=== PATIENT | female | born 1980 | race Caucasian/White ===

== ENCOUNTER 2018-11-22 04:30 | Inpatient (IN) | payer MEDICAID, OTHER ==
[~2018-11-22] VITALS: Ht 152.4 cm; Wt 59.0 kg
[~2018-11-22 04:30] MED LIST: ACET-8386 PO; CIPR250T3 PO
[2018-11-22 04:37] VITALS: BP 116/67
--- NOTE | 2018-11-22 04:45 | NUR ---
LELIA FREEDMAN AT BEDSIDE.
--- NOTE | 2018-11-22 04:47 | NUR ---
37 Y/O FEMALE C/O EPIGASTRIC PAIN WITH N/V RADIATING TO BACK X 1 DAY. PAIN IS A 10/10 BURNING PAIN. A/OX 4. SKIN IS MOIST AND INTACT. RADIAL PULSES ARE +2. SHE STATES THAT SHE HAS PAIN IN HER CHEST/EPIGASTRIC AREA AND NAUSEA, VOMITING, AND DIARRHEA. BOWEL SOUNDS NORMOACTIVE ON ALL FOUR QUADRANTS. ER MD AWARE OF STATUS. PLACED ON MONITOR. VSS. SIDERAILS X1. PMH:DENIES POST X 2 DAYS NKDA RX:DENIES
[2018-11-22] MEDS ORDERED: NACL 0.9% 1,000 ML IV SCH (04:48)
[2018-11-22] MEDS ORDERED: MORPHINE SULFATE 4 MG/ML SYR IVP ONE (04:50)
[2018-11-22] MEDS ORDERED: ONDANSETRON 4 MG/2 ML VIAL IVP ONE (04:50)
[2018-11-22] MEDS ORDERED: ALUMINUM HYD/MAG/SIMETHICONE 30 ML, DICYCLOMINE HCL LIQUID 20 MG, LIDOCAINE VISCOUS 2% ... PO ONE ×3 (04:50)
[2018-11-22 05:38] LABS: BASOPHILS % (AUTO) 0.3 % (0.0-2.0); EOSINOPHILS # (AUTO) 0.3 K/uL (0-0.4); EOSINOPHILS % (AUTO) 2.3 % (0.0-4.0); HEMATOCRIT 38.4 % (36-48); HEMOGLOBIN 12.5 g/dL (12.0-16.0); LYMPHOCYTES # (AUTO) 1.3 K/uL (2.5-16.5); MEAN CORPUSCULAR HEMOGLOBIN 29 pg (27-31); MEAN CORPUSCULAR HGB CONC 33 g/dL (33-37); MEAN CORPUSCULAR VOLUME 90.2 fL (80-94); MONOCYTES # (AUTO) 0.8 K/uL (0.8-1.0); MONOCYTES % (AUTO) 5.2 % (1.7-9.3); NEUTROPHILS # (AUTO) 12.5 K/uL (1.8-7.7); NEUTROPHILS % (AUTO) 83.2 % (42.2-75.2); PLATELET COUNT (AUTO) 269 K/uL (140-450); RED BLOOD CELL COUNT(AUTO) 4.25 MIL/uL (4.20-5.40); RED CELL DISTRIBUTION WIDTH 13.9 % (11.6-13.7)
--- NOTE | 2018-11-22 05:44 | NUR ---
ULTRASOUND AT BEDSIDE.
[2018-11-22] MEDS ORDERED: MORPHINE SULFATE 10 MG/ML VIAL IVP ONE (05:55)
--- NOTE | 2018-11-22 05:55 | NUR ---
LELIA FREEDMAN AT BEDSIDE.
[2018-11-22 06:05] LABS: ANION GAP 13.8 (8-16); CARBON DIOXIDE 25.8 mmol/L (21-32); CREATININE 1.4 mg/dL (0.6-1.3); POTASSIUM 3.6 mmol/L (3.5-5.1)
--- NOTE | 2018-11-22 06:05 | NUR ---
10 MG OF MORPHINE PULLED, 6MG OF MORPHINE GIVEN IVP; WASTED 4MG.
[2018-11-22 06:06] LABS: ALBUMIN 3.3 g/dL (3.4-5.0)
--- NOTE | 2018-11-22 06:07 | NUR ---
PATIENT AT A 10/10 PAIN. NOTIFIED
[2018-11-22] MEDS ORDERED: NACL 0.9% 1,000 ML IV ONE (06:15)
--- NOTE | 2018-11-22 07:10 | NUR ---
Pt report given to RAJAN HOFFMAN. Transfer of care at this time.
[2018-11-22] MEDS ORDERED: MORPHINE SULFATE 2 MG/ML SYR IVP PRN ×3 (07:35→13:10)
[2018-11-22] MEDS ORDERED: MORPHINE SULFATE 4 MG/ML SYR IVP PRN ×2 (07:35→20:50)
[2018-11-22 08:15] VITALS: BP 100/54
--- NOTE | 2018-11-22 08:15 | NUR ---
RECEIVED PT FROM ER NURSE, VIA WHEELCHAIR, PT IS AWAKE ACCOMPANIED BY , AMBULATED TO THE BED, IV LINE ON THE LEFT AC G. 20 ON SALINE LOCK, SIDE RAILS ARE UP AND CALL LIGHT WITHIN REACH, PT DENIES PAIN AND NO SIGN OF DISTRESS NOTED, SKIN IS INTACT. WILL MONITOR PT
--- NOTE | 2018-11-22 08:15 | NUR ---
PATIENT ADMITTED TO [facility]. TRANSFERRED PATIENT VIA WHEELCHAIR, SPOUSE AT BEDSIDE. SBAR REPORT GIVEN TO RAJAN SUE AT BEDSIDE. NO ACUTE DISTRESS NOTED.
--- NOTE | 2018-11-22 08:20 | NUR ---
MRSA SWAB DONE TO PT AND SAMPLE WAS SENT TO LAB.
[2018-11-22 08:32] LABS: APPEARANCE,URINE HAZY (CLEAR); BILIRUBIN,URINE NEGATIVE (NEGATIVE); BLOOD, URINE NEGATIVE (NEGATIVE); COLOR,URINE YELLOW (YELLOW); LEUKOCYTE ESTERASE ,URINE NEGATIVE (NEGATIVE); NITRITE, URINE NEGATIVE (NEGATIVE); UGLUCOSE NEGATIVE (NEGATIVE)
[2018-11-22] MEDS: LEVOFLOXACIN 500 MG/D5W PREMIX 100 ML IV SCH (09:27)
[2018-11-22] MEDS: NACL 0.9% 1,000 ML IV SCH ×3 (09:27→22:12)
--- NOTE | 2018-11-22 09:27 | NUR ---
PT IS AWAKE AND WAS STARTED ON IVF OF NS AT 100ML/HR, MEDICATION WAS GIVEN VIA IVPB, WILL MONITOR PT.
--- NOTE | 2018-11-22 11:10 | NUR ---
PT C/O PAIN RATE OF 9/10 ON THE ABDOMEN AND PAIN MEDICATION WAS GVIEN VIA IV PUSH, PARAMETER CHECKED. WILL RE-ASSESS PAIN AND MONITOR PT.
[2018-11-22] MEDS: ONDANSETRON 4 MG/2 ML VIAL IVP PRN (11:21)
--- NOTE | 2018-11-22 11:21 | NUR ---
PT C/O FEELING OF NAUSEA AND ZOFRAN WAS GIVEN VIA IV PUSH. WILL MONITOR PT.
[2018-11-22 16:00] VITALS: BP 118/69
[2018-11-22] MEDS: MORPHINE SULFATE 4 MG/ML SYR IVP PRN ×2 (17:26→21:26)
--- NOTE | 2018-11-22 17:26 | NUR ---
PT C/O PAIN RATE OF 8/10 AND PAIN MEDICATION WAS GIVEN VIA IV PUSH. WILL MONITOR AND RE-ASSESS PAIN.
--- NOTE | 2018-11-22 19:10 | NUR ---
ENDORSED PT TO BOAT CREW DECK HAND NURSE AGUSTIN FOR CONTINUITY OF CARE.
--- NOTE | 2018-11-22 19:10 | NUR ---
RECIEVED PT AAOX4 ,NID ,IV SITE INTACT AND PATENT , C/O ABDL. PAIN INSPITE OF THE AM NURSE GIVEN MORPHINE SO4 TIV AT AROUND 5PM - WILL CONT. TO MONITOR. KEEP ON NPO RE INSTRUCTED TO PT. PLAN OF CARE DISCUSSED AND VERBALIZE UNDERSTANDING . ON SAFETY / FALL PRECAUTION PROTOCOL - CALL LIGHT WITHIN REACH .
[2018-11-22 20:00] VITALS: BP 122/70
--- NOTE | 2018-11-22 20:30 | NUR ---
PT REQUESTED TO HAVE MORPINE NOW - CANT WAIT UNTIL THE RIGHT TIME INTERVALS OF MORPHINE SO4 PRN -WILL REFER TO PROVIDER RELATIONS MANAGER MD.
--- NOTE | 2018-11-22 20:43 | NUR ---
DR LAI YANES -T.O MAY GIVE THE MORPHINE SO4 Q 3 TO 4 HOURS FOR PAIN -4MG TIV-T.O
--- NOTE | 2018-11-22 21:00 | NUR ---
PHARMACIST CALL SHE SAID IT'S COMPLICATE TO CARRIED THE MORPHINE SO4 ORDERED BY DR. HOYT AND DR MIRANDA AND WE SETTLED TO CARRIED OUT THE AP ORDERED SINCE THE PT CAN WAIT NOW THE DUE TIME FOR HER MORPHINE SO4 PRN BASIS FOR PAIN.
[2018-11-23] VITALS: BP 100/60
[2018-11-23] MEDS: MORPHINE SULFATE 4 MG/ML SYR IVP PRN ×4 (02:27→20:08)
--- NOTE | 2018-11-23 07:20 | NUR ---
RECEIVED REPORT FROM INSPECTOR CONVEYOR LINE NURSE AGUSTIN FOR CONTINUITY OF CARE. PT IN STABLE CONDITION. RESPIRATIONS EVEN AND UNLABORED, ROOM AIR. IV INTACT AND PATENT. SAFETY MEASURES IN PLACE. BED IN LOW POSITION. CALL LIGHT AT BEDSIDE. WILL CONTINUE TO MONITOR.
[2018-11-23 08:00] VITALS: BP 118/66
--- NOTE | 2018-11-23 08:10 | NUR ---
GAVE PRN PAIN MEDICATION PER PT REQUEST. BED IN LOW POSITION. CALL LIGHT AT BEDSIDE. PT IN STABLE CONDITION.
[2018-11-23 08:26] LABS: HEMATOCRIT 43.7 % (36-48); HEMOGLOBIN 14.1 g/dL (12.0-16.0); MEAN CORPUSCULAR HEMOGLOBIN 30 pg (27-31); MEAN CORPUSCULAR HGB CONC 32 g/dL (33-37); MEAN CORPUSCULAR VOLUME 91.3 fL (80-94); PLATELET COUNT (AUTO) 201 K/uL (140-450); RED BLOOD CELL COUNT(AUTO) 4.79 MIL/uL (4.20-5.40); RED CELL DISTRIBUTION WIDTH 14.2 % (11.6-13.7); WHITE BLOOD COUNT (AUTO) 10.7 K/uL (4.8-10.8)
--- NOTE | 2018-11-23 08:30 | NUR ---
PATIENT HAS BEEN SCREENED AND CATEGORIZED MODERATE NUTRITION RISK. PATIENT WILL BE SEEN WITHIN 3-5 DAYS OF ADMISSION. 11/24/18ROE [address]
[2018-11-23 09:22] LABS: ALBUMIN 2.2 g/dL (3.4-5.0); ANION GAP 17.1 (8-16); CARBON DIOXIDE 20.2 mmol/L (21-32); CREATININE 1.6 mg/dL (0.6-1.3); MAGNESIUM 1.9 mg/dL (1.8-2.4); POTASSIUM 4.3 mmol/L (3.5-5.1)
[2018-11-23 09:37] LABS: LYMPHOCYTES % (MANUAL) 5 % (20-46); MONOCYTES % (MANUAL) 3 % (5-12)
[2018-11-23] MEDS ORDERED: MORPHINE SULFATE 2 MG/ML SYR IVP PRN (11:05)
[2018-11-23] MEDS ORDERED: MAGNESIUM HYDROXIDE 2400 MG/30 ML UDC PO SCH (11:08)
[2018-11-23] MEDS: NACL 0.9% 1,000 ML IV SCH ×2 (11:33→23:44)
--- NOTE | 2018-11-23 11:54 | NUR ---
STAND BY ASSIST PT TO RESTROOM. PT TOLERATED WELL.
--- NOTE | 2018-11-23 13:01 | NUR ---
LUÍS MITCHELL DR. MORPHINE 10MG IVP Q4, MORPHINE 4MG IVP NOW.
[2018-11-23] MEDS ORDERED: MORPHINE SULFATE 4 MG/ML SYR IVP SCH (13:15)
--- NOTE | 2018-11-23 15:15 | NUR ---
PT TALKING WITH FAMILY AT BEDSIDE. RESPIRATIONS EVEN AND UNLABORED. BED IN LOW POSITION. CALL LIGHT AT BEDSIDE. PT IN STABLE CONDITION.
[2018-11-23 16:00] VITALS: BP 122/64
[2018-11-23] MEDS: MORPHINE SULFATE 10 MG/ML VIAL IVP PRN ×2 (17:40→23:44)
--- NOTE | 2018-11-23 17:46 | NUR ---
PT LYING IN BED SLEEP AT THIS TIME WITH FAMILY AT BEDSIDE. RESPIRATIONS EVEN AND UNLABORED. BED IN LOW POSITION. CALL LIGHT AT BEDSIDE. PT IN STABLE CONDITION.
--- NOTE | 2018-11-23 19:15 | NUR ---
GAVE REPORT TO US CUSTOMS AND BORDER OFFICER NURSE MARGARITA FOR CONTINUITY OF CARE. PT IN STABLE CONDITION.
--- NOTE | 2018-11-23 19:30 | NUR ---
RECEIVED BEDSIDE REPORT FROM DAY RN. PT IS AAOX4 ON ROOM AIR. RESPIRATIONS ARE EQUAL AND UNLABORED. FAMILY IS AT BEDSIDE. PT IS AMBULATORY. SKIN IS INTACT. IV ON LAC 20G NS AT 100M/H. PT NPO EXCEPT MEDS. NO PMH. POC DISCUSSED WITH PT. DENIES PAIN. WILL CONTINUE TO ROUND FREQUENTLY.
--- NOTE | 2018-11-23 20:08 | NUR ---
ADMINISTERED MORPHINE FOR ABDOMINAL PAIN 08/23. PT TOLERATED WELL. WILL CONTINUE TO MONITOR.
[2018-11-23] MEDS: ALBUTEROL 0.083% 2.5 MG/3 ML NEBU INH PRN (20:44)
--- NOTE | 2018-11-23 21:30 | NUR ---
PT IS RESTING COMFORTABLY IN BED. NO S/S OF DISTRESS. CALL LIGHT IS WITHIN REACH. WILL CONTINUE TO MONITOR.
[2018-11-23 22:29] VITALS: BP 106/52
--- NOTE | 2018-11-23 23:44 | NUR ---
VITAL SIGNS ARE WITHIN NORMAL LIMITS. NO S/S OF DISTRESS. ADMINISTERED MORPHINE FOR PAIN 11/23. CALL LIGHT IS WITHIN REACH. WILL CONTINUE TO MONITOR.
[2018-11-24] MEDS: ALBUTEROL 0.083% 2.5 MG/3 ML NEBU INH PRN ×3 (00:06→17:22)
--- NOTE | 2018-11-24 00:10 | NUR ---
RT IS AT BEDSIDE GIVING PT A BREATHING TREATMENT. ALL NEEDS MET AT THIS TIME. WILL CONTINUE TO MONITOR.
--- NOTE | 2018-11-24 01:19 | NUR ---
PATIENT IS SLEEPING COMFORTABLY IN BED. CHEST RISE AND FALL. NO S/S OF DISTRESS. ALL NEEDS MET AT THIS TIME. WILL CONTINUE TO MONITOR.
--- NOTE | 2018-11-24 03:37 | NUR ---
PATIENT IS SLEEPING COMFORTABLY IN BED. CHEST RISE AND FALL. CALL LIGHT IS WITHIN REACH.
[2018-11-24] MEDS: MORPHINE SULFATE 10 MG/ML VIAL IVP PRN ×3 (05:17→19:41)
--- NOTE | 2018-11-24 05:17 | NUR ---
ADMINISTERED 10MG MORPHINE IVP PRN ORDERED FOR ABDOMINAL PAIN 11/23. VS:123/60 128 SAT 100% ON 2L.
--- NOTE | 2018-11-24 07:28 | NUR ---
GAVE BEDSIDE REPORT TO DAY RN. PT ENDORSED IN STABLE CONDITION.
--- NOTE | 2018-11-24 07:29 | NUR ---
RECEIVED REPORT FROM GREEN END WORKER NURSE MARGARITA FOR CONTINUITY OF CARE. PT IN STABLE CONDITION. RESPIRATIONS EVEN AND UNLABORED, ROOM AIR. IV INTACT AND PATENT. SAFETY MEASURES IN PLACE. BED IN LOW POSITION. CALL LIGHT AT BEDSIDE. WILL CONTINUE TO MONITOR.
--- NOTE | 2018-11-24 07:36 | NUR ---
Called to beside due to pt wheezing, pt received PRN albu tx, improved aeration noted, will talk to RN and MD.
[2018-11-24 08:00] VITALS: BP 102/60
[2018-11-24 08:04] LABS: MEAN CORPUSCULAR HEMOGLOBIN 30 pg (27-31); MEAN CORPUSCULAR HGB CONC 32 g/dL (33-37); MEAN CORPUSCULAR VOLUME 91.3 fL (80-94); PLATELET COUNT (AUTO) 174 K/uL (140-450); RED BLOOD CELL COUNT(AUTO) 4.05 MIL/uL (4.20-5.40); RED CELL DISTRIBUTION WIDTH 14.4 % (11.6-13.7); WHITE BLOOD COUNT (AUTO) 13.3 K/uL (4.8-10.8)
[2018-11-24] MEDS: MAGNESIUM HYDROXIDE 2400 MG/30 ML UDC PO SCH (09:44)
[2018-11-24 09:51] LABS: LYMPHOCYTES % (MANUAL) 6 % (20-46); MONOCYTES % (MANUAL) 5 % (5-12)
[2018-11-24 09:52] LABS: METAMYELOCYTES % 2 % (0-0); MYELOCYTES % 1 % (0-0)
[2018-11-24] MEDS: NACL 0.9% 1,000 ML IV SCH (09:52)
[2018-11-24] MEDS: LEVOFLOXACIN 500 MG/D5W PREMIX 100 ML IV SCH (09:56)
--- NOTE | 2018-11-24 10:12 | NUR ---
ASSISTED WITH BEDSIDE COMMODE. GAVE SANITARY [place] AND UNDERWEAR FOR START OF PERIOD. PT TOLERATED WELL. RESPIRATIONS EVEN AND UNLABORED. BED IN LOW POSITION. CALL LIGHT AT BEDSIDE. WILL CONTINUE TO MONITOR.
--- NOTE | 2018-11-24 10:12 | NUR ---
Spoke with Dr. Bruno about pt wheezing and current tx plan. would like to continue current tx plan alb Q6 PRN.
[2018-11-24] MEDS ORDERED: FUROSEMIDE 40 MG/4 ML VIAL IVP SCH (10:25)
[2018-11-24 10:52] LABS: ANION GAP 16.6 (8-16); POTASSIUM 4.6 mmol/L (3.5-5.1)
[2018-11-24 10:53] LABS: TOTAL BILIRUBIN 0.4 mg/dL (0.0-1.0)
[2018-11-24 10:55] LABS: ALBUMIN 1.9 g/dL (3.4-5.0)
[2018-11-24] MEDS: ONDANSETRON 4 MG/2 ML VIAL IVP PRN ×2 (12:12→23:00)
--- NOTE | 2018-11-24 12:18 | NUR ---
GAVE NAUSEA MEDICATION PER PT REQUEST. PT TOLERATED WELL. RESPIRATIONS EVEN AND UNLABORED. BED IN LOW POSITION. CALL LIGHT AT BEDSIDE. WILL CONTINUE TO MONITOR.
--- NOTE | 2018-11-24 15:15 | NUR ---
PT LYING IN BED SLEEP AT THIS TIME. RESPIRATIONS EVEN AND UNLABORED. WILL CONTINUE TO MONITOR.
[2018-11-24 16:00] VITALS: BP 133/51
--- NOTE | 2018-11-24 17:30 | NUR ---
PT TALKING WITH FAMILY AT BEDSIDE. WILL CONTINUE TO MONITOR.
--- NOTE | 2018-11-24 19:20 | NUR ---
GAVE REPORT TO PREPARATION PLANT REPAIRER NURSE FOR CONTINUITY OF CARE. PT IN STABLE CONDITION.
--- NOTE | 2018-11-24 19:25 | NUR ---
RECEIVED BEDSIDE REPORT FROM DAY RN. PT IS AAOX4 ON ROOM AIR. RESPIRATIONS ARE EQUAL AND UNLABORED. FAMILY IS AT BEDSIDE. PT IS AMBULATORY. SKIN IS INTACT. IV ON LAC 20G IVF PER ORDERS. PT NPO EXCEPT MEDS. NO PMH. POC DISCUSSED WITH PT. DENIES PAIN. WILL CONTINUE TO ROUND FREQUENTLY.
--- NOTE | 2018-11-24 19:41 | NUR ---
ADMINISTERED MORPHINE IVP PRN FOR PAIN. VSS. CALL LIGHT IS WITHIN REACH. WILL CONTINUE TO MONITOR.
--- NOTE | 2018-11-24 21:36 | NUR ---
PT IS SLEEPING COMFORTABLY IN BED. CHEST RISE AND FALL. NO S/S OF DISTRESS. WILL CONTINUE TO MONITOR.
--- NOTE | 2018-11-24 23:00 | NUR ---
ADMINISTERED ZOFRAN FOR C/C NAUSEA. ALL NEEDS MET AT THIS TIME. CALL LIGHT IS WITHIN REACH. WILL CONTINUE TO MONITOR.
[2018-11-24 23:51] VITALS: BP 121/63
--- NOTE | 2018-11-24 23:54 | NUR ---
VITAL SIGNS ARE WITHIN NORMAL LIMITS. NO S/S OF DISCOMFORT. SAFETY MEASURES ARE IN PLACE. WILL CONTINUE TO MONITOR.
--- NOTE | 2018-11-25 01:19 | NUR ---
PATIENT IS RESTING COMFORTABLY IN BED WITH EYES CLOSED. CHEST RISE AND FALL. CALL LIGHT IS WITHIN REACH. WILL CONTINUE TO MONITOR.
[2018-11-25] MEDS: MORPHINE SULFATE 10 MG/ML VIAL IVP PRN (01:47)
--- NOTE | 2018-11-25 01:47 | NUR ---
ADMINISTERED PRN MORPHINE IVP VS:114/65 HR 102 98% ON 2L O2. PT TOLERATED WELL. SAFETY MEASURES ARE IN PLACE. WILL CONTINUE TO MONITOR.
--- NOTE | 2018-11-25 03:30 | NUR ---
PT IS SLEEPING COMFORTABLY IN BED. CHEST RISE AND FALL. NO S/S OF DISTRESS. CALL LIGHT IS WITHIN REACH. WILL CONTINUE TO MONITOR.
[2018-11-25] MEDS: NACL 0.9% 1,000 ML IV SCH (04:50)
[2018-11-25] MEDS: ONDANSETRON 4 MG/2 ML VIAL IVP PRN ×2 (06:17→14:18)
--- NOTE | 2018-11-25 06:17 | NUR ---
ADMINISTERED ZOFRAN FOR NAUSEA. PT TOLERATED WELL. ALL NEEDS MET AT THIS TIME. CALL LIGHT IS WITHIN REACH. WILL CONTINUE TO MONITOR.
[2018-11-25 06:18] LABS: HEMATOCRIT 33.9 % (36-48); HEMOGLOBIN 11.1 g/dL (12.0-16.0); MEAN CORPUSCULAR HEMOGLOBIN 30 pg (27-31); MEAN CORPUSCULAR HGB CONC 33 g/dL (33-37); MEAN CORPUSCULAR VOLUME 90.7 fL (80-94); PLATELET COUNT (AUTO) 166 K/uL (140-450); RED BLOOD CELL COUNT(AUTO) 3.74 MIL/uL (4.20-5.40); RED CELL DISTRIBUTION WIDTH 14.2 % (11.6-13.7); WHITE BLOOD COUNT (AUTO) 9.5 K/uL (4.8-10.8)
[2018-11-25 07:02] LABS: BASOPHILS % (MANUAL) 0 % (0-2); EOSINOPHILS % (MANUAL) 0 % (0-4); LYMPHOCYTES % (MANUAL) 7 % (20-46); MONOCYTES % (MANUAL) 6 % (5-12)
[2018-11-25 07:08] LABS: ALBUMIN 1.9 g/dL (3.4-5.0); ANION GAP 14.6 (8-16); CARBON DIOXIDE 23.2 mmol/L (21-32); CREATININE 1.5 mg/dL (0.6-1.3); POTASSIUM 3.8 mmol/L (3.5-5.1); TOTAL BILIRUBIN 0.4 mg/dL (0.0-1.0)
--- NOTE | 2018-11-25 07:20 | NUR ---
GAVE BEDSIDE REPORT TO DAY RN. PT ENDORSED IN STABLE CONDITION.
[2018-11-25 07:42] VITALS: BP 130/73
[2018-11-25] MEDS: ALBUTEROL 0.083% 2.5 MG/3 ML NEBU INH PRN (07:53)
--- NOTE | 2018-11-25 08:01 | NUR ---
RECEIVED BED SIDE REPORT FROM PLANT PROPAGATOR RN. PT A/O X4, VS STABLE, O2 SAT 91%, PT FOUND WITHOUT OXYGEN NASAL CANNULA. APPLIED NC O2 2L. WHEEZING HEARD BILAT. CALLED LUCIUS EVANS AT [phone] TO GIVE PT A BREATHING TX. PT ALSO REQUESTED A BREATHING TX. SKIN INTACT. LEFT AC 20G RUNNING NS AT 50CC/HR. PT STATES SHE HAS 6/10 ABDOMINAL PAIN. WILL GIVE PAIN MEDS PER MD ORDER. BEDSIDE COMMODE AT BEDSIDE. CALL LIGHT WITHIN REACH. WILL CONTINUE TO MONITOR.
[2018-11-25] MEDS: MAGNESIUM HYDROXIDE 2400 MG/30 ML UDC PO SCH (08:18)
[2018-11-25] MEDS: MORPHINE SULFATE 4 MG/ML SYR IVP PRN (08:20)
--- NOTE | 2018-11-25 08:24 | NUR ---
GAVE MORPHINE 6MG PER MD ORDER IVP. BP PRIOR TO ADMINISTRATION OF MEDICATION WAS 118/63, HR 70, O2 SAT 97%. PT GOT BREATHING TX DONE. WHEEZING ONLY HEARD ON EXPIRATORY. WILL CONTINUE TO MONITOR.
--- NOTE | 2018-11-25 11:56 | NUR ---
PT DENIES ANY PAIN. STOPPED IVF PER MD ORDER. PT NOW ON SALINE LOCK. GAVE LASIX PER MD ORDER. PT DENIES PAIN. WILL CONTINUE TO MONITOR.
[2018-11-25] MEDS ORDERED: FUROSEMIDE 40 MG/4 ML VIAL IVP SCH (12:00)
--- NOTE | 2018-11-25 14:11 | NUR ---
11/25/18 RD INITIAL ASSESSMENT COMPLETED PLEASE REFER TO NUTRITION ASSESSMENT UNDER CARE ACTIVITY FOR ESTIMATED NUTRITIONAL NEEDS. 1. CONTINUE CLEAR LIQUID DIET TOLERATED 2. CONSIDER ENSURE CLEAR TID 3. ADVANCE TO A BLAND SOFT LOW FAT DIET WHEN MEDICALLY APPROPRIATE 4. RD TO FOLLOW-UP 2-3 DAYS, HIGH RISK ROE DIXON, ELVA
--- NOTE | 2018-11-25 14:48 | NUR ---
PT STATED SHE FEELS NAUSEOUS. GAVE ZOFRAN PER MD ORDER. DENIES PAIN.
[2018-11-25 15:50] VITALS: BP 107/69
--- NOTE | 2018-11-25 18:00 | NUR ---
PT STABLE AND DENIES PAIN. WILL CONTINUE TO MONITOR.
--- NOTE | 2018-11-25 18:53 | NUR ---
GAVE BEDSIDE REPORT TO INSPECTOR AND ADJUSTER GOLF CLUB HEAD RN. PT STABLE.
--- NOTE | 2018-11-25 19:20 | NUR ---
Received endorsement from AM shift RN; patient A/Ox4, able to make needs known, Palestinian speaking, ambulatory. Introduced self, updated board. No SOB or distress noted, on room air. IV site on left antecubital, 20 gauge, saline locked. Skin intact. Bed in lowest position, call light within reach. Initial assessment done. Will continue to monitor.
[2018-11-25] MEDS: ACETAMINOPHEN 325 MG TAB PO PRN (19:21)
--- NOTE | 2018-11-25 21:30 | NUR ---
Due meds given, tolerated well.
--- NOTE | 2018-11-25 23:40 | NUR ---
Vitals taken, no distress noted.
[2018-11-26] VITALS: BP 107/66
--- NOTE | 2018-11-26 01:15 | NUR ---
Checks made; patient resting comfortably, visible chest rise and fall noted.
[2018-11-26] MEDS: ACETAMINOPHEN 325 MG TAB PO PRN (03:46)
--- NOTE | 2018-11-26 03:47 | NUR ---
Rounds done; patient stated she had a headache. Administered PRN medication per order.
--- NOTE | 2018-11-26 06:10 | NUR ---
Vitals stable, due meds given. Will endorse to AM shift RN for continuity of care.
[2018-11-26 07:45] VITALS: BP 119/72
--- NOTE | 2018-11-26 07:55 | NUR ---
RECEIVED REPORT FROM RAJAN HOFFMAN. PATIENT ALERT AWAKE ORIENTED X4, NOT IN ANY DISTRESS NOTED. C/O PAIN 6/10 ON HER RUQ, REFUSED MEDICATION. IV ON SALINE LOCK INTACT. ENCOURAGE PATIENT TO AMBULATE. DISCUSSED PLAN OF CARE. WILL CONTINUE TO MONITOR.
--- NOTE | 2018-11-26 08:22 | NUR ---
REPORT GIVEN TO RAJAN GUSMAN FOR CONTINUITY OF CARE. PATIENT IN STABLE CONDITION.
--- NOTE | 2018-11-26 08:23 | NUR ---
RECEIVED REPORT FROM RAAJN MONDRAGON. PATIENT RESTING IN BED, NO SIGNS OF DISTRESS ON RA, PATIENT IS SALINE LOCKED. NO FLUIDS RUNNING AT THIS TIME. PATIENT STATES PAIN IS TOLERABLE AT 3/10 AND DOES NOT WANT MEDICATIONS AT THIS TIME. BED IS LOW, CALL LIGHT IN REACH. WILL CONTINUE TO MONITOR.
[2018-11-26] MEDS: MAGNESIUM HYDROXIDE 2400 MG/30 ML UDC PO SCH (09:00)
--- NOTE | 2018-11-26 09:00 | NUR ---
PREPARATION H NOT AVAILABLE TO BE ADMINISTERED. NOT IN CASSETTE. CALLED PHARMACY.
[2018-11-26 09:37] LABS: BASOPHILS % (AUTO) 0.1 % (0.0-2.0); EOSINOPHILS # (AUTO) 0.1 K/uL (0-0.4); HEMATOCRIT 32.5 % (36-48); HEMOGLOBIN 10.7 g/dL (12.0-16.0); LYMPHOCYTES # (AUTO) 0.6 K/uL (2.5-16.5); LYMPHOCYTES % (AUTO) 8.1 % (20.5-51.1); MEAN CORPUSCULAR HEMOGLOBIN 29 pg (27-31); MEAN CORPUSCULAR HGB CONC 33 g/dL (33-37); MEAN CORPUSCULAR VOLUME 89.2 fL (80-94); MONOCYTES # (AUTO) 0.4 K/uL (0.8-1.0); MONOCYTES % (AUTO) 5.7 % (1.7-9.3); NEUTROPHILS # (AUTO) 6.1 K/uL (1.8-7.7); NEUTROPHILS % (AUTO) 85.1 % (42.2-75.2); PLATELET COUNT (AUTO) 215 K/uL (140-450); RED BLOOD CELL COUNT(AUTO) 3.64 MIL/uL (4.20-5.40); RED CELL DISTRIBUTION WIDTH 14.2 % (11.6-13.7)
[2018-11-26 10:15] LABS: WHITE BLOOD COUNT (AUTO) 7.1 K/uL (4.8-10.8)
[2018-11-26] MEDS: LEVOFLOXACIN 500 MG/D5W PREMIX 100 ML IV SCH (10:29)
--- NOTE | 2018-11-26 10:29 | NUR ---
ADMINISTERED SCHEDULED IV LEVAQUIN. HELD MILK OF MAGNESIUM DUE TO PATIENT C/O DIARRHEA. PATIENT TOLERATING WELL. WILL CONTINUE TO MONITOR. PATIENT HAS PAIN BUT DOES NOT WANT MORPHINE, IT IS "TOO STRONG". DOCTOR AT BEDSIDE WILL PLACE ORDER FOR NORCO 5MG PO. BED LOW, CALL LIGHT IN REACH.
--- NOTE | 2018-11-26 10:35 | NUR ---
PATIENT IV LEAKING. DR MIRANDA AWARE, HE WILL DISCONTINUE LEVAQUIN. PATIENT NO LONGER NEEDS. WILL UNDO ADMINISTRATION IN E-MAR. PATIENT DISCONNECTED FROM IV FLUID AND IV ANTIBIOTICS. BED IS LOW, CALL LIGHT IN REACH. WILL MEDICATE FROM PAIN ONCE ORDERS ARE PLACED. PATIENT AWARE.
[2018-11-26 11:34] VITALS: BP 119/72
[2018-11-26] MEDS ORDERED: HYDROcodone/APAP 5/325 MG 1 TAB TAB PO PRN (11:45)
[2018-11-26 11:47] LABS: ANION GAP 12.9 (8-16); POTASSIUM 2.9 mmol/L (3.5-5.1)
[2018-11-26 11:48] LABS: CREATININE 1.4 mg/dL (0.6-1.3); TOTAL BILIRUBIN 0.4 mg/dL (0.0-1.0)
[2018-11-26 11:49] LABS: ALBUMIN 1.8 g/dL (3.4-5.0)
--- NOTE | 2018-11-26 12:07 | NUR ---
ADMINISTERED 5MG PO NORCO FOR 5/10 ABDOMINAL PAIN. PATIENT TOLERATED WELL. DISCUSSED SIDE EFFECTS. PATIENT VERBALIZED UNDERSTANDING. PATIENT DISCHARGE IS PENDING LOW POTASSIUM LAB. AWAITING FURTHER INSTRUCTIONS FROM DOCTOR.
--- NOTE | 2018-11-26 14:00 | NUR ---
PATIENT POTASSIUM IS 2.9. CALL MADE TO DR. MIRANDA. AWAITING FURTHER ORDERS. PATIENT DISCHARGE IS POSTPONED UNTIL DOCTOR ACKNOWLEDGES LOW POTASSIUM. PATIENT VERBALIZED UNDERSTANDING AND IS WAITING FOR FURTHER INSTRUCTIONS RELATED TO DISCHARGE.
[2018-11-26] MEDS ORDERED: POTASSIUM CHLORIDE 10 MEQ TABER PO SCH (15:00)
--- NOTE | 2018-11-26 15:00 | NUR ---
PATIENT DISCHARGED HOME ACCOMPANIED BY FAMILY. EDUCATED PATIENT ON MEDICATIONS AND SIDE EFFECTS, FOLLOW UP APPOINTMENTS AND SYMPTOMS FOR WHICH TO RETURN. REMOVED 22 GAUGE IV CATHETER FROM LEFT AC, TIP INTACT. REMOVED WRIST BANDS. PATIENT ESCORTED FROM UNIT VIA WHEELCHAIR, AMBULATED TO PRIVATE VEHICLE WITH STEADY GAIT.
== END 2018-11-26 15:11 | disposition home or self-care (01) | DRG 282 ==
LOC: MED 04:30 → MTU 07:40
PROVIDERS: ADMIT Internal Medicine Pulmonary Disease; ATTEND Internal Medicine Pulmonary Disease
DX: K85.90 Acute pancreatitis without necrosis or infection, unspecified (principal); R65.11 Systemic inflammatory response syndrome (SIRS) of non-infectious origin with acute organ dysfunction; N17.0 Acute kidney failure with tubular necrosis; E44.1 Mild protein-calorie malnutrition; Z68.25 Body mass index [BMI] 25.0-25.9, adult; D72.829 Elevated white blood cell count, unspecified; E87.1 Hypo-osmolality and hyponatremia; J45.909 Unspecified asthma, uncomplicated; E87.6 Hypokalemia
CPT/HCPCS: 36415; 71045; 76705; 76770; 80053; 81003; 82150; 83690; 83735; 83880; 84703; 85025; 87081; 94640; 96361; 96374; 96375; 96376; 99285; J1940; J1956; J2270; J2405; J7030; J7613; Q0092